=== PATIENT | female | born 1975 | race Caucasian/White ===

== ENCOUNTER → 2016-12-16 | Outpatient (CLI) | payer BC ==
[~2016-12-16] MED LIST: ACETAMINOPHEN-O1 TAB PO; ANAPROX DS550 MG PO; CIPRO500 MG PO; DIPHENHYDRAMINE50 M1 PO; FLAGYL500 MG PO; IBU-8800 MG PO; KETOROLAC10 MG PO; MEDROL DOSEPAK4 MG PO; MIRALAX POWDER255 G1 PO; NKHM PO; PERCOCET 325 MG1 TA2 PO; TRAMADOL HCL50 MG PO; TRIMOX500 MG PO; VICODIN ES 7501 TAB PO; ZOFRAN ODT4 MG SL
== END | disposition home or self-care (01) ==
LOC: US 11:08
DX: R10.2 Pelvic and perineal pain (principal)

== ENCOUNTER 2017-02-16 21:23 | Emergency (ER) | payer BC ==
[~2017-02-16] VITALS: Wt 61.7 kg
[~2017-02-16 21:23] MED LIST changes: -ACETAMINOPHEN-O1 TAB PO; -CIPRO500 MG PO; -FLAGYL500 MG PO; -MIRALAX POWDER255 G1 PO; -ZOFRAN ODT4 MG SL
[2017-02-16] MEDS ORDERED: ACETAMINOPHEN-O1 TAB PO (21:29)
[2017-02-16 22:30] LABS: BASO # 0.1 10*3/uL (0.0-0.1); BASO % 0.5 % (0.0-1.0); EOS # 0.3 10*3/uL (0.0-0.4); EOS % 2.5 % (1.0-4.0); HEMATOCRIT 39.3 % (37.0-47.0); HEMOGLOBIN 13.7 g/dl (12.0-16.0); LYMPH # 4.4 10*3/uL (1.3-4.4); LYMPH % 40.1 % (27.0-41.0); MEAN CELL VOLUME 84.5 fl (81.0-99.0); MEAN CORPUSCULAR HGB 29.5 pg (27.0-31.0); MEAN CORPUSCULAR HGB CONC 34.9 g/dl (33.0-37.0); MEAN PLATELET VOLUME 9.4 fl (9.6-12.3); MONO # 0.6 10*3/uL (0.1-1.0); MONO % 5.1 % (3.0-9.0); NEUT # 5.7 10*3/uL (2.3-7.9); NEUT % 51.4 % (47.0-73.0); PLATELET COUNT AUTOMATED 343 10*3/uL (130-400); RED BLOOD COUNT 4.65 10*6/uL (4.10-5.10); RED CELL DISTRI WIDTH 11.9 % (0-14.5)
[2017-02-16 22:37] LABS: BILIRUBIN NEGATIVE (NEGATIVE); BLOOD TRACE-INTACT (NEGATIVE); CLARITY SL CLOUDY (CLEAR); COLOR YELLOW (YELLOW); GLUCOSE NEGATIVE (NEGATIVE); KETONE NEGATIVE (NEGATIVE); LEUKO ESTERASE 1+ (NEGATIVE); NITRITE NEGATIVE (NEGATIVE); PH 8.5 (5.0-9.0); PROTEIN NEGATIVE (NEGATIVE); SPECIFIC GRAVITY 1.015 (1.005-1.030); UROBILINOGEN 0.2 E.U./dl (0.2-1.0)
[2017-02-16 22:44] LABS: C-REACTIVE PROTEIN 0.64 MG/DL (0-0.3)
[2017-02-16 22:53] LABS: BACTERIA 1+; EPITHELIAL CELLS TNTC; RBC 0-2 rbc/hpf (0-2); URINE REFLEX COMMENT YES (NO)
[2017-02-17 00:27] LABS: LA>2 REFLEX 2 HR DRAW NOW
[2017-02-17] MEDS ORDERED: FLAGYL500 MG PO (00:41)
[2017-02-17] MEDS ORDERED: MIRALAX POWDER255 G1 PO (00:41)
[2017-02-17] MEDS ORDERED: ZOFRAN ODT4 MG SL (00:41)
[2017-02-17] MEDS ORDERED: PERCOCET 325 MG1 TA2 PO (00:41)
[2017-02-17] MEDS ORDERED: CIPRO500 MG PO (00:41)
== END 2017-02-17 00:55 | disposition home or self-care (01) ==
LOC: ED 21:23
PROVIDERS: Emergency Medicine Emergency Medical Services
DX: K52.9 Noninfective gastroenteritis and colitis, unspecified (principal); F17.200 Nicotine dependence, unspecified, uncomplicated; Z88.0 Allergy status to penicillin; Z79.899 Other long term (current) drug therapy

== ENCOUNTER → 2018-05-25 | Outpatient (CLI) | payer BC ==
[~2018-05-25] MED LIST changes: +ACETAMINOPHEN-O1 TAB PO; +CIPRO500 MG PO; +FLAGYL500 MG PO; +MIRALAX POWDER255 G1 PO; +ZOFRAN ODT4 MG SL
== END | disposition home or self-care (01) ==
LOC: MAMMO 16:43
DX: Z12.31 Encounter for screening mammogram for malignant neoplasm of breast (principal)

== ENCOUNTER 2020-02-25 14:42 | Emergency (ER) | payer BC, OTHER ==
[~2020-02-25] VITALS: Ht 154.9 cm; Wt 59.4 kg
[2020-02-25 14:55] VITALS: BP 158/112
[2020-02-25] MEDS ORDERED: ANTIBIOTIC28.4 GM T (15:48)
== END 2020-02-25 15:57 | disposition home or self-care (01) ==
LOC: ED 14:42
DX: S01.91XA Laceration without foreign body of unspecified part of head, initial encounter (principal); E11.9 Type 2 diabetes mellitus without complications; Z88.0 Allergy status to penicillin; X58.XXXA Exposure to other specified factors, initial encounter; Y93.89 Activity, other specified; Y92.89 Other specified places as the place of occurrence of the external cause; Y99.8 Other external cause status

== ENCOUNTER 2022-08-03 14:48 | Emergency (ER) | payer OTHER ==
[~2022-08-03] VITALS: Ht 154.9 cm; Wt 60.8 kg
[~2022-08-03 14:48] MED LIST changes: +ANTIBIOTIC28.4 GM T
[2022-08-03 14:55] VITALS: BP 165/104
== END 2022-08-03 15:39 | disposition home or self-care (01) ==
LOC: ED 14:48
DX: S00.05XA Superficial foreign body of scalp, initial encounter (principal); W45.8XXA Other foreign body or object entering through skin, initial encounter; Y93.89 Activity, other specified; Y92.89 Other specified places as the place of occurrence of the external cause; Y99.8 Other external cause status

== ENCOUNTER 2024-07-12 19:09 | Observation (INO) | payer BC ==
[~2024-07-12] VITALS: Ht 167.6 cm; Wt 72.6 kg
[2024-07-12 19:24] VITALS: BP 210/110
[2024-07-12] MEDS ORDERED: IBU800 M2 PO (19:34)
[2024-07-12] MEDS ORDERED: ESTRADIOL0.5 MG PO (19:34)
[2024-07-12 19:39] LABS: BASO # 0.1 10*3/uL (0.0-0.1); BASO % 0.5 % (0.0-1.0); EOS # 0.2 10*3/uL (0.0-0.4); HEMATOCRIT 39.6 % (37.0-47.0); LYMPH # 3.9 10*3/uL (1.3-4.4); LYMPH % 36.9 % (27.0-41.0); MEAN CELL VOLUME 87.6 fl (81.0-99.0); MEAN CORPUSCULAR HGB 29.9 pg (27.0-31.0); MEAN CORPUSCULAR HGB CONC 34.1 g/dl (33.0-37.0); MONO # 0.7 10*3/uL (0.1-1.0); MONO % 6.3 % (3.0-9.0); NEUT # 5.8 10*3/uL (2.3-7.9); NEUT % 54.1 % (47.0-73.0); PLATELET COUNT AUTOMATED 347 10*3/uL (130-400); RED BLOOD COUNT 4.52 10*6/uL (4.10-5.10); RED CELL DISTRI WIDTH 12.9 % (0-14.5); WHITE BLOOD COUNT 10.7 10*3/uL (4.8-10.8)
[2024-07-12 19:50] LABS: ACT PARTIAL THROMBO TIME 27.5 SECONDS (20.0-32.1)
[2024-07-12 19:59] LABS: ALKALINE PHOSPHATASE 94 U/L (46-116); BUN 8 mg/dl (9-23); CHLORIDE 103 mmol/L (98-107); POTASSIUM 3.8 mmol/L (3.4-5.1); SGPT/ALT 17 U/L (5-49); TOTAL PROTEIN 7.2 gm/dL (6.0-8.0)
[2024-07-12 20:15] VITALS: BP 178/97
[2024-07-12] MEDS ORDERED: Labetalol Hydrochloride 20 MG/4 ML SYR IV ONE (20:15)
[2024-07-12 20:23] LABS: BILIRUBIN Negative (Negative); BLOOD Negative (Negative); CLARITY Clear (Clear); COLOR Yellow (Yellow); GLUCOSE Negative (Negative); KETONE Negative (Negative); LEUKO ESTERASE Negative (Negative); NITRITE Negative (Negative); SPECIFIC GRAVITY <= 1.005 (1.001-1.030); UROBILINOGEN 0.2 E.U./dl (0.0-1.0)
[2024-07-12 20:33] LABS: BACTERIA TRACE; WBC 0-2 wbc/hpf (0-5)
[2024-07-12 20:56] VITALS: BP 156/94
[2024-07-12] MEDS ORDERED: fentaNYL CITRATE 100 MCG/2 ML VIAL IV ONE (21:15)
[2024-07-12] MEDS ORDERED: TEMAZEPAM 15 MG CAP PO PRN (22:00)
[2024-07-12] MEDS ORDERED: MORPHINE Sulfate 2 MG/ML SYR IV PRN (22:00)
[2024-07-12] MEDS ORDERED: BISACODYL 10 MG SUPP R PRN (22:00)
[2024-07-12] MEDS ORDERED: Magnesium Hydroxide 30 ML UDC PO PRN (22:00)
[2024-07-12] MEDS ORDERED: BISACODYL 5 MG TAB PO PRN (22:00)
[2024-07-12] MEDS ORDERED: Ondansetron Hydrochloride 4 MG/2 ML VIAL IV PRN (22:00)
[2024-07-12] MEDS ORDERED: ACETAMINOPHEN 650 MG SUPP R PRN (22:00)
[2024-07-12] MEDS ORDERED: ACETAMINOPHEN 325 MG TAB PO PRN (22:00)
[2024-07-12] MEDS ORDERED: Technetium Tc 99M Tetrofosmi 0.23 MG KIT IJ SCH (22:25)
[2024-07-13 00:41] VITALS: BP 126/81
[2024-07-13 03:18] VITALS: BP 111/53
[2024-07-13 06:15] VITALS: BP 102/63
[2024-07-13 06:53] LABS: BASO % 0.4 % (0.0-1.0); EOS # 0.3 10*3/uL (0.0-0.4); EOS % 2.6 % (1.0-4.0); HEMATOCRIT 37.7 % (37.0-47.0); LYMPH # 3.3 10*3/uL (1.3-4.4); LYMPH % 34.1 % (27.0-41.0); MEAN CELL VOLUME 86.3 fl (81.0-99.0); MEAN CORPUSCULAR HGB CONC 34.7 g/dl (33.0-37.0); MONO # 0.7 10*3/uL (0.1-1.0); NEUT # 5.4 10*3/uL (2.3-7.9); NEUT % 55.6 % (47.0-73.0); PLATELET COUNT AUTOMATED 284 10*3/uL (130-400); RED BLOOD COUNT 4.37 10*6/uL (4.10-5.10); WHITE BLOOD COUNT 9.7 10*3/uL (4.8-10.8)
[2024-07-13 07:02] LABS: ACT PARTIAL THROMBO TIME 27.1 SECONDS (20.0-32.1)
[2024-07-13 08:00] VITALS: BP 144/87
[2024-07-13 08:22] LABS: VITAMIN D, 25-HYDROXY 33.7 ng/mL (30-100)
[2024-07-13 08:28] LABS: ALKALINE PHOSPHATASE 77 U/L (46-116); BUN 11 mg/dl (9-23); CHLORIDE 105 mmol/L (98-107); CHOLESTEROL 234 mg/dL (<200); FREE T4 1.16 ng/dl (0.89-1.76); LDL CHOLESTEROL 142 mg/dL (9-159); POTASSIUM 3.8 mmol/L (3.4-5.1); SGPT/ALT 15 U/L (5-49); TOTAL PROTEIN 6.6 gm/dL (6.0-8.0); TRIGLYCERIDES 172 mg/dl (<150)
[2024-07-13] MEDS ORDERED: METOPROLOL SUCCINATE XR 25 MG TAB PO SCH (09:50)
[2024-07-13] MEDS ORDERED: ASPIRIN ENTERIC COATED 81 MG TAB PO SCH (09:50)
[2024-07-13] MEDS ORDERED: ATORVASTATIN CALCIUM 40 MG TABLET PO SCH (09:50)
[2024-07-13] MEDS ORDERED: Enoxaparin Sodium 40 MG/0.4 ML SYR SC SCH (10:00)
[2024-07-13] MEDS ORDERED: Regadenoson 0.4 MG/5 ML SYR IV ONE (10:18)
[2024-07-13 15:00] VITALS: BP 150/88
[2024-07-13] MEDS ORDERED: ATORVASTATIN CA40 M1 PO (16:28)
[2024-07-13] MEDS ORDERED: ASPIRIN ADULT L81 M2 PO (16:28)
[2024-07-13] MEDS ORDERED: METOPROLOL SUCC25 M2 PO (16:28)
[2024-07-13 16:41] VITALS: BP 126/70
== END 2024-07-13 17:31 | disposition home or self-care (01) ==
LOC: ED 19:09 → EDHOLD 21:51
PROVIDERS: Emergency Medicine; Nurse Practitioner Family; Student in an Organized Health Care Education/Training Program; ADMIT Internal Medicine; ATTEND Internal Medicine
DX: R07.89 Other chest pain (principal); I10 Essential (primary) hypertension; E78.5 Hyperlipidemia, unspecified; Z79.899 Other long term (current) drug therapy